=== PATIENT | female | born 1985 | race Caucasian/White ===

== ENCOUNTER → 2022-01-21 | Outpatient (CLI) | payer OTHER, SELFPAY ==
[2022-01-21 08:58] LABS: Bacteria 0 SEEN /hpf (None Seen); Mucous, Urine 0 SEEN /hpf (<or=2+); Red Blood Cells-Urine 0 SEEN /hpf (0-5)
[2022-01-21 12:19] LABS: Color, Urine Yellow (Yellow); Glucose, Dipstick Normal (Normal); Ketone-Dipstick 5 mg/dl (Negative); Leukocyte Esterase-Dipstick 500 /ul (Negative); Nitrite-Dipstick Negative (Negative); Occult Blood-Urine 10 /ul (Negative); Protein-Dipstick 15 mg/dl (Negative); Specific Gravity, Urine 1.015 (1.002-1.030); Urine Bilirubin Dipstick Negative (Negative); Urine Clarity Clear (Clear); Urine Urobilinogen 1 mg/dl (Normal)
[2022-01-21 12:19] LABS: Absolute Lymphocyte Count 1.48 X10^3/uL (0.83-4.51); Absolute Neutrophil Count 4.5 X10^3/uL (2.0-7.7); Basophil# 0.06 X10^3/uL; Basophil% 0.9 % (0-1); Eosinophil# 0.24 X10^3/uL; Eosinophils% 3.5 % (0-5); Hematocrit 42.2 % (37-47); Hemoglobin 14.3 g/dL (12.0-15.0); Lymphocyte # 1.48 X10^3/ul (0.83-4.51); Lymphocyte % 21.5 % (19-41); Mean Corp Hgb Conc 33.9 g/dL (32-36); Mean Corpuscular Hgb 31.6 pg (27.0-32.0); Mean Corpuscular Volume 93.2 fL (81-99); Monocyte# 0.54 X10^3/uL; Monocyte% 7.8 % (0-10); NRBC Flagged by Analyzer 0 % (0-5); Neutrophil # 4.52 X10^3/uL (2.7-7.7); Neutrophil % 65.7 % (47-70); Platelet Count 232 K/mm3 (150-450); RBC Distribution Width CV 13.2 % (11.6-14.6); RBC Distribution Width SD 44.7 fl (35.1-43.9); Red Blood Count 4.53 M/mm3 (4.2-5.4); White Blood Count 6.9 K/mm3 (4.4-11.0)
[2022-01-21 12:32] LABS: Squamous Epithelial Cells - UA 0-5 SEEN /hpf (5-10); White Blood Cells 0-5 SEEN /hpf (0-5)
[2022-01-21 12:50] LABS: ALB/GLOB Ratio 1.2 RATIO (0.9-2.4); AST(SGOT) 21 U/L (15-37); Alanine Aminotransfer ALT/SGPT 38 U/L (13-56); Albumin, Serum 3.9 g/dL (3.2-5.0); Alkaline Phosphatase 57 U/L (45-117); Anion Gap 5 (5-15); BUN 15 mg/dL (7-18); BUN/Creat Ratio 22.3 RATIO (10-20); Calcium,Total 8.9 mg/dL (8.5-10.1); Chloride 106 mmol/L (98-107); Creatinine, Serum 0.67 mg/dL (0.55-1.02); EST Glomerular Filtration Rate 105 mL/min (>60); Est Glom Filt Rate - Afr Amer 127 mL/min (>60); Globulin 3.3 g/dL (2.2-4.2); Glucose 94 mg/dL (74-106); Protein, Total 7.2 g/dL (6.4-8.2); Sodium Level 139 mmol/L (136-145); T4 Free Direct 1.03 ng/dL (0.76-1.46); Thyroid Stim Hormone (TSH) 1.89 uIU/mL (0.358-3.74)
== END | disposition home or self-care (01) ==
LOC: MFPLAB 08:56
PROVIDERS: Visit Provider Family Medicine
DX: F17.200 Nicotine dependence, unspecified, uncomplicated (principal); R68.89 Other general symptoms and signs; F41.9 Anxiety disorder, unspecified
CPT/HCPCS: 36415; 80053; 81001; 84439; 84443; 85025

== ENCOUNTER 2023-04-24 17:39 | Emergency (ER) | payer OTHER, SELFPAY ==
[2023-04-24 17:39] VITALS: BP 116/92; PULSE 100; RESP 16; TEMP 35.9; O2SAT 100; BMI 23.5
--- NOTE | 2023-04-24 17:57 | CT_ITS ---
We are attempting to reach an attending provider to discuss findings. An addendum with communication details will be sent when the communication is complete. EXAM: CT ABDOMEN AND PELVIS WITH INTRAVENOUS CONTRAST CLINICAL INDICATION: lower abd pain TECHNIQUE: Helically acquired images were obtained of the abdomen and pelvis with intravenous contrast. This CT exam was performed using one or more of the following dose reduction techniques: automated exposure control, adjustment of the mA and/or kV according to patient size, and/or use of iterative reconstruction technique. CONTRAST: Oral and amp; IV Gastrografin and amp; 100mL Isovue-300 COMPARISON: No relevant prior studies available. FINDINGS: LOWER THORAX: No significant abnormality. Lung bases are clear. No cardiomegaly. No significant pericardial effusion. ABDOMEN: LIVER: No significant abnormality. Homogeneous. No focal mass. GALLBLADDER AND BILE DUCTS: No significant abnormality. No calcified gallstones. No gallbladder distention or wall edema. No intra- or extrahepatic biliary ductal dilation. PANCREAS: No significant abnormality. No focal cystic or solid mass. SPLEEN: No significant abnormality. Normal size without focal cystic or solid mass. ADRENALS: No significant abnormality. No nodules. KIDNEYS AND URETERS: Multiple left-sided calyceal stones, the largest measuring 3 mm. No hydronephrosis or ureteral stone is identified. Normal renal size and position. STOMACH AND BOWEL: Mild wall thickening of the loop of small bowel adjacent to the uterus, likely secondary to the adjacent inflammation. No stomach or bowel distention. PELVIS: APPENDIX: No evidence of acute appendicitis. BLADDER: No significant abnormality. REPRODUCTIVE: Low-attenuation focus within the posterior body of the uterus measuring approximately 2.4 x 3.2 cm extending beyond the serosal margin of the uterus with surrounding parametrial inflammation. IUD present. ABDOMEN and PELVIS: INTRAPERITONEAL SPACE: No significant abnormality. No ascites or other fluid collection. No free air. BONES/JOINTS: Mild degenerative changes in the spine. No suspicious lytic or blastic abnormality. SOFT TISSUES: No significant abnormality. No discrete abdominal or pelvic wall hernia. VASCULATURE: No significant abnormality. Abdominal aorta is non-dilated. LYMPH NODES: No significant abnormality. No enlarged lymph nodes. CT/Abdomen/Pelvis WITH Contrast IMPRESSION: 1. Low-attenuation focus within the posterior body of the uterus measuring approximately 2.4 x 3.2 cm extending beyond the serosal margin of the uterus with surrounding parametrial inflammation. Uterine abscess, acutely degenerating fibroid, or perhaps perforated uterus should be considered. Correlation for temporal relationship of placement of the patient''s IUD and other clinical factors. This appears distinct from adjacent bowel. Recommend DIGITAL DIRECTOR consultation. 2. Multiple left-sided calyceal stones, the largest measuring 3 mm. No hydronephrosis or ureteral stone is identified. 3. Mild wall thickening of the loop of small bowel adjacent to the uterus, likely secondary to the adjacent inflammation. No bowel obstruction. No free air. Electronically Signed: Kingsley Jay DO at 20:16 EDT ,
--- NOTE | 2023-04-24 17:58 | EDS_ITS ---
HPI History of Present Illness Chief Complaint: Abd Pain Informant: patient Onset/Context/Timing Onset: Weeks Context: Gradual Onset Current Severity: Mild Maximum Severity: Moderate Narrative Narrative: Patient presents with 2-week history of lower abdominal pain. She states it feels like someone is wringing a towel out across her lower abdomen. Pain is progressively been worsening and last evening she got low back pain along with chills. She went to urgent care today and her urinalysis was clean. She was encouraged to come to the ER. She has no dysuria or problems with bowel movements. She has had no prior abdominal surgeries. Her last menstrual cycle ended on the . She has no history of ovarian cyst. PFSH PFSH Medical History no medical history no medical history Home Medications NK 04/24/23 [History Last Taken Unknown] Allergy/AdvReac Type Severity Reaction Status Date / Time No Known Allergies Allergy Verified 04/24/23 20:38 Family History Mother Hypertension Social History Smoking Status: Current every day smoker tobacco type: cigarettes alcohol intake: never ROS ROS ED Constitutional Constitutional ED: Reports chills; Denies fever(s) Eyes Eyes: Denies change in vision ENT ENT ED: Denies rhinorrhea or sore throat Cardiovascular Cardiovascular: Denies chest pain or palpitations Respiratory/Chest Respiratory/Chest: Denies cough or dyspnea Gastrointestinal Gastrointestinal: Reports abdominal pain; Denies diarrhea, nausea or vomiting Genitourinary Genitourinary ED: Denies difficulty urinating, dysuria or hematuria Musculoskeletal Musculoskeletal: Reports back pain; Denies extremity pain Integumentary Denies Abrasions or rash Neurologic Neurologic: Denies headache(s) or weakness Allergic/Immunologic Allergic/Immunologic ED: Denies lip swelling or urticaria EXAM Physical Exam Const Vital Signs: 04/24/23 17:39 Temperature 96.7 F L Temperature Source Temporal Pulse Rate 100 Respiratory Rate 16 Blood Pressure 116/92 H Blood Pressure Mean 100 Pulse Ox 100 Oxygen Delivery Method Room Air Positive well nourished and well developed General Appearance ED: well developed HEENT Reports moist mucous membranes Eyes EOMs intact bilaterally Neck no lymphadenopathy Chest Wall inspection of chest normal and palpation of chest normal Resp normal respiratory effort and clear to auscultation bilaterally Cardio regular rate and regular rhythm GI GI Narrative: Moderate tenderness across the lower abdomen. No guarding. Hypoactive but present bowel sounds noted Extremity normal to inspection Neuro oriented x3 and no sensory deficits noted Sensorium / Orientation: alert Motor Exam: strength 5/5 throughout Skin no rashes or lesions noted MDM MDM MDM Narrative Medical decision making narrative: Patient declines anything for pain or nausea at this time. Labwork obtained to evaluate for leukocytosis, anemia, and electrolyte derangement. CT scan of the abdomen and pelvis will be obtained to evaluate for ovarian abnormality, diverticulitis, appendicitis, colitis. Lab Data Attestation: I reviewed the patient's lab results. Labs: Laboratory Results - last 24 hr 04/24/23 18:13 WBC 13.4 H RBC 4.63 Hgb 14.5 Hct 44.0 MCV 95.0 MCH 31.3 MCHC 33.0 RDW Std Deviation 45.4 H RDW Coeff of Jorge Luis 12.9 Plt Count 308 MPV 10.1 Immature Gran % (Auto) 0.600 Neut % (Auto) 73.7 H Lymph % (Auto) 15.8 L Gage % (Auto) 5.6 Eos % (Auto) 3.4 Baso % (Auto) 0.9 Absolute Neuts (auto) 9.8 H Absolute Lymphs (auto) 2.11 Nucleated RBC % 0 Sodium 137 Potassium 3.5 Chloride 106 Carbon Dioxide 29.0 Anion Gap 2 L BUN 10 Creatinine 0.67 Estim Creat Clear Calc 106.58 Est GFR (MDRD) Af Amer 127 Est GFR (MDRD) Non-Af 105 BUN/Creatinine Ratio 15.0 Glucose 105 Calcium 9.0 Total Bilirubin 0.20 Direct Bilirubin 0.09 AST 12 L ALT 20 Alkaline Phosphatase 80 Total Protein 8.0 Albumin 3.9 Globulin 4.1 Lipase 27 Serum , Qual NEGATIVE Radiography Diagnostic Testing: Clinical Impression(s) from Imaging Studies Abdomen/Pelvis CT 04/24/23 17:57 IMPRESSION: 1. Low-attenuation focus within the posterior body of the uterus measuring approximately 2.4 x 3.2 cm extending beyond the serosal margin of the uterus with surrounding parametrial inflammation. Uterine abscess, acutely degenerating fibroid, or perhaps perforated uterus should be considered. Correlation for temporal relationship of placement of the patient''s IUD and other clinical factors. This appears distinct from adjacent bowel. Recommend PLATE AND WELD INSPECTOR consultation. 2. Multiple left-sided calyceal stones, the largest measuring 3 mm. No hydronephrosis or ureteral stone is identified. 3. Mild wall thickening of the loop of small bowel adjacent to the uterus, likely secondary to the adjacent inflammation. No bowel obstruction. No free air. Electronically Signed: Kingsley Jay DO at 20:16 EDT , ADDENDUM: 04/24/232029 IMPRESSION: 1. Low-attenuation focus within the posterior body of the uterus measuring approximately 2.4 x 3.2 cm extending beyond the serosal margin of the uterus with surrounding parametrial inflammation. Uterine abscess, acutely degenerating fibroid, or perhaps perforated uterus should be considered. Correlation for temporal relationship of placement of the patient''s IUD and other clinical factors. This appears distinct from adjacent bowel. Recommend PLATE AND WELD INSPECTOR consultation. 2. Multiple left-sided calyceal stones, the largest measuring 3 mm. No hydronephrosis or ureteral stone is identified. 3. Mild wall thickening of the loop of small bowel adjacent to the uterus, likely secondary to the adjacent inflammation. No bowel obstruction. No free air. N.B. : The above Results were Read Back by Kingsley Jay DO to Molly Reed MD, and understanding confirmed on 04/24/2023 20:23:26 (ET). Electronically Signed: Kingsley Jay DO at 20:16 EDT , Transvaginal US 04/24/23 20:26 IMPRESSION: Complex heterogenous uterine lesion extending beyond the margins of the serosa correlating with the comparison CT. This may be an acutely degenerating fibroid. Abscess can''t be excluded. Correlate clinically. Recommend PLATE AND WELD INSPECTOR consultation if not already performed. Contrast enhanced MRI may be useful. Electronically Signed: Kingsley Jay DO at 21:59 EDT , Treatment and Re-Evaluation :: White blood cell count is elevated at 13.4 but only 73% neutrophils noted. Chemistry studies are unremarkable. LFTs and lipase are normal. test negative. She had a urinalysis performed at urgent care prior to arrival and it was negative for infection. CT scan of the abdomen pelvis was obtained with contrast. There is a low-attenuation focus in the posterior body of the uterus measuring 2.4 x 3.2 cm extending beyond the serosal margin of the uterus with surrounding parametrial inflammation. Uterine abscess acutely degenerating fibroid or perhaps perforated uterus should be considered. Patient does have an IUD in place and she states it has been there for approximately 16 years. She has not had a recent pelvic exam and I do not believe there is any indication that she would have a perforated uterus. Patient has no discharge. Pelvic ultrasound was then performed that reveals again a complex heterogeneous uterine lesion extending beyond the margins of the serosa. This may be an acutely degenerating fibroid. Abscess cannot be completely excluded. Patient has seen Radha Carvajal in the past. I spoke with Dr. Charlette Love, on-call for Dr. Wei coles. She feels that this is likely a degenerating fibroid as there would be no reason for her to have a focal posterior abscess. Patient clinically looks well. Patient is to follow-up with PLATE AND WELD INSPECTOR as soon as possible for evaluation. Patient is comfortable with this plan. Discharge Plan Triage Chief Complaint: Abd Pain ED Provider: Molly Reed Dx/Rx/DC Orders Clinical Impression: Degeneration of uterine fibroid, Pelvic pain Instructions: ED Uterine Fibroids Prescriptions: No Action NK Primary Care Provider: Cali Crespo Referrals: Radha Carvajal MD [Med Staff - Active Staff] - As soon as possible Care Physician,No Primary [Non-Staff] - Disposition Disposition: Home, Self Care
[2023-04-24] MEDS: 0.9% Normal Saline (1000mL) 1,000 ML 150 ML IV (18:10)
[2023-04-24 18:20] LABS: Absolute Lymphocyte Count 2.11 X10^3/uL (0.83-4.51); Absolute Neutrophil Count 9.8 X10^3/uL (2.0-7.7); Basophil# 0.12 X10^3/uL; Basophil% 0.9 % (0-1); Eosinophil# 0.46 X10^3/uL; Eosinophils% 3.4 % (0-5); Hemoglobin 14.5 g/dL (12.0-15.0); Lymphocyte # 2.11 X10^3/ul (0.83-4.51); Lymphocyte % 15.8 % (19-41); Mean Corpuscular Hgb 31.3 pg (27.0-32.0); Mean Platelet Vol. 10.1 fl (6.2-12.0); Monocyte# 0.75 X10^3/uL; Monocyte% 5.6 % (0-10); NRBC Flagged by Analyzer 0 % (0-5); Neutrophil # 9.84 X10^3/uL (2.7-7.7); Neutrophil % 73.7 % (47-70); Platelet Count 308 K/mm3 (150-450); RBC Distribution Width CV 12.9 % (11.6-14.6); RBC Distribution Width SD 45.4 fl (35.1-43.9); Red Blood Count 4.63 M/mm3 (4.2-5.4); White Blood Count 13.4 K/mm3 (4.4-11.0)
[2023-04-24 18:26] LABS: Internal QC Validated? YES +Cl - CLEAR BKGD; Pregnancy, Serum, hCG Quali. NEGATIVE Negative
[2023-04-24 18:35] LABS: AST(SGOT) 12 U/L (15-37); Alanine Aminotransfer ALT/SGPT 20 U/L (13-56); Albumin, Serum 3.9 g/dL (3.2-5.0); Alkaline Phosphatase 80 U/L (45-117); Anion Gap 2 (5-15); BUN 10 mg/dL (7-18); Bilirubin, Direct 0.09 mg/dL (0.00-0.30); Chloride 106 mmol/L (98-107); Creatinine, Serum 0.67 mg/dL (0.55-1.02); EST Glomerular Filtration Rate 105 mL/min (>60); Est Glom Filt Rate - Afr Amer 127 mL/min (>60); Estimated Creatinine Clearance 106.58 ml/min; Globulin 4.1 g/dL (2.2-4.2); Glucose 105 mg/dL (74-106); Lipase 27 U/L (13-75); Potassium 3.5 mmol/L (3.5-5.1); Sodium Level 137 mmol/L (136-145)
--- NOTE | 2023-04-24 20:26 | US_ITS ---
EXAM: US PELVIS TRANSVAGINAL CLINICAL INDICATION: abn uterine finding on CT, pelvic pain TECHNIQUE: Transvaginal pelvic ultrasound was performed with grayscale and color Doppler imaging. Transvaginal imaging was used for better evaluation of the endometrium and adnexa. COMPARISON: CT abdomen and pelvis on the same date. FINDINGS: UTERUS/CERVIX: Complex heterogenous predominantly hypoechoic lesion within the posterior uterine body appears either subserosal or extending beyond the confines of the uterus correlating with the comparison examination. No internal vascular flow is identified nor is there peripheral hypervascular flow. An IUD is identified. Small nabothian cysts are identified. Anteverted. The uterus measures 9.5 x 6.4 x 4.3 cm. The endometrial stripe measures 0.2 cm in thickness. RIGHT OVARY: Right ovarian cyst/dominant follicle measuring 1.9 cm for which no follow-up is indicated. Blood flow is present in the right ovary. The right ovary measures 4.8 x 2.8 x 2.3 cm. LEFT OVARY: Left ovarian cyst/dominant follicle measuring 1.3 cm for which no follow-up is indicated. Blood flow is present in the left ovary. The left ovary measures 2.6 x 2.5 x 1.9 cm. FREE FLUID: None. BLADDER: Empty bladder which cannot be evaluated with this probe. US/Transvaginal Non- IMPRESSION: Complex heterogenous uterine lesion extending beyond the margins of the serosa correlating with the comparison CT. This may be an acutely degenerating fibroid. Abscess can''t be excluded. Correlate clinically. Recommend AIRCRAFT PNEUDRAULICS REPAIRER consultation if not already performed. Contrast enhanced MRI may be useful. Electronically Signed: Kingsley Jay DO at 21:59 EDT ,
[2023-04-24 22:49] VITALS: RESP 16
== END 2023-04-24 22:56 | disposition home or self-care (01) ==
PROVIDERS: Emergency Provider Emergency Medicine; PCP Family Medicine; Visit Provider Emergency Medicine
DX: D25.9 Leiomyoma of uterus, unspecified (principal); R11.0 Nausea; F17.210 Nicotine dependence, cigarettes, uncomplicated; Z97.5 Presence of (intrauterine) contraceptive device
CPT/HCPCS: 74177; 76830; 80048; 80076; 83690; 84703; 85025; 96360; 96361; 99283; J7030; Q9967; A4216